=== PATIENT | male | born 1940 | race Caucasian/White ===

== ENCOUNTER 2019-08-02 12:34 | Observation (INO) | payer MEDICARE, BC, OTHER ==
[~2019-08-02] VITALS: Ht 193 cm; Wt 101.4 kg
[~2019-08-02 12:34] MED LIST: MEDDOSEPAK PO; VENTOLIN HFA IN; ZPAK PO
--- NOTE | 2019-08-02 12:46 | NUR ---
AMBULATED TO ROOM 8 WITH STEADY GAIT.
--- NOTE | 2019-08-02 13:27 | NUR ---
PT PRESENTS WITH PALPITATIONS AND SOME CHEST DISCOMFORT THAT THE PT SAYS IS A PAIN OF 0/10. 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 A BLOOD GLUCOSE WAS DONE IMMIDATELY, AND IT SHOWED A CRITICAL HIGH. NO ACTUAL NUMBER DETERMIND AND PT IS NOT A DX DIABETIC. WILL CONTINUE TO MONITOR.
--- NOTE | 2019-08-02 13:32 | NUR ---
ACCU CHECK COMPLETED. RESULT WAS CR HIGH
[2019-08-02 13:43] LABS: HEMATOCRIT 44.3 % (39.0-50.0); HEMOGLOBIN 15.5 g/dl (14.0-18.0); IMMATURE GRANULOCYTES 0.3 % (0.0-5.0); MEAN CORPUSCULAR HGB 31.1 pG CALC (26.0-32.0); NEUT# 7.23 thou/uL (1.82-7.42); RED BLOOD COUNT 4.98 mill/uL (4.70-6.10); RED CELL DISTRI WIDTH 13.5 % (11.5-15.5)
[2019-08-02 13:59] LABS: ALBUMIN 4.1 g/dL (3.2-5.0); ALKALINE PHOSPHATASE 130 u/l (38-126); ANION GAP 18 (6-22 (CALC)); BUN 19 mg/dL (8-23); BUN/CREATININE RATIO 15 (12-20 (CALC)); CARBON DIOXIDE 23 mmol/l (22-30); CHLORIDE 97 mmol/l (95-108); CREATININE 1.3 mg/dL (0.7-1.3); GFR 53 ML/MIN (>=60 (CALC)); GFR FOR AFR.AMER. > 60 ML/MIN (>=60 (CALC)); POTASSIUM 4.5 mmol/l (3.5-5.1); SGOT/AST 31 u/l (19-48); SODIUM 133 mmol/l (137-146); TOTAL PROTEIN 6.9 g/dL (6.3-8.2)
[2019-08-02 14:11] LABS: MYOGLOBIN 132 ng/mL (0 - 121)
--- NOTE | 2019-08-02 14:55 | NUR ---
PREFORMED ANOTHER ACCU CHECK RESULT [id number]
[2019-08-02 14:58] LABS: URINE BILIRUBIN - DIPSTICK NEGATIVE (NEGATIVE); URINE BLOOD DIPSTICK TRACE-INTACT (NEGATIVE); URINE COLOR YELLOW; URINE GLUCOSE - DIPSTICK >=1000 mg/dL (NEGATIVE); URINE KETONE NEGATIVE (NEGATIVE); URINE LEUK ESTERASE NEGATIVE (NEGATIVE); URINE NITRITE - DIPSTICK NEGATIVE (Negative); URINE PROTEIN - DIPSTICK NEGATIVE (NEG-TRACE); URINE UROBILINOGEN - DIPSTICK 0.2 E.U./dL (0.2)
[2019-08-02] MEDS ORDERED: LIPITOR10 M1 PO (15:18)
[2019-08-02] MEDS ORDERED: HYZAAR1 TAB PO (15:19)
[2019-08-02] MEDS ORDERED: DIGOXIN125 MCG (15:20)
[2019-08-02] MEDS ORDERED: ATENOLOL25 MG PO (15:21)
[2019-08-02] MEDS ORDERED: PREVACID15 M2 PO (15:22)
--- NOTE | 2019-08-02 15:55 | NUR ---
PT REQUESTED CUP OF WATER, REQUEST COMPLIED. PT DENIES ANY OTHER NEEDS
--- NOTE | 2019-08-02 16:30 | NUR ---
PT UPDATED ON PLAN OF CARE, CALL LIGHT WITHIN REACH, WILL CONTINUE TO MONITOR.
--- NOTE | 2019-08-02 17:39 | NUR ---
PT MADE AWARE OF WAIT TIME, BUSY ER AND MED SURG FLOOR. PT VERBALIZED UNDERSTANDING. WILL CONTINUE TO MONITOR.
--- NOTE | 2019-08-02 18:28 | NUR ---
ACCU CHECK RESULT [id number]
--- NOTE | 2019-08-02 18:28 | NUR ---
REPORT TO PAWAN
--- NOTE | 2019-08-02 18:32 | NUR ---
TRANSPORTED BY STRETCHER BY GELA. CARE ASSUMED TO PAWAN
[2019-08-02 18:35] VITALS: BP 115/84
--- NOTE | 2019-08-02 18:36 | NUR ---
PT ARRIVED FROM ER VIA STRETCHER ACCOMPANIED BY STAFF. IV SITE IS FREE FROM REDNESS OR EDEMA. TELE MONITOR IN PLACE. CONTINUE TO OSBERVE AND MONITOR.
--- NOTE | 2019-08-02 21:15 | NUR ---
PT ADMISSION COMPLETED AND PT ASSESSED. PT LOC TO SELF, AND LOCATION/CIRCUMSTANCE. HE DOES HAVE SOME DIFFICULTY FINDING WORDS TO COMPLETE HIS THOUGHT, BUT FOR THE MOST PART IS ABLE TO COMMUNICATE W/ME. PT REPORTS BEING TOLD HE WAS DIABETIC 1.5 YRS AGO BY A DOCTOR IN [place], BUT THAT HE DOES NOT TAKE ANY MEDICATIONS OR INSULIN FOR BS. HE DOES REPORT THAT HE CHECKS HIS BLOOD SUGAR 2X PER DAY AM AND PM.
[2019-08-02 23:55] VITALS: BP 119/81
--- NOTE | 2019-08-03 00:46 | NUR ---
PT SLEEPING AT THIS TIME. PT MOANING/SNORING IN HIS SLEEP, OTHERWISE NO S/O DISTRESS NOTED. CALL LIGHT IS AT BEDSIDE. PT AWOKE TO MY ENTERING ROOM. DENIES ANY NEEDS, BUT ENCOURAGED TO CALL NEEDS ARISE. BED ALARM ON.
--- NOTE | 2019-08-03 03:23 | NUR ---
IVF PUMP SOUNDED, IVF REPLACED AT THIS TIME. URINAL EMPTIED OF 200CC CLEAR DARK YELLOW URINE AT THIS TIME. BED ALARM ON. CALL LIGHT IN HAND, PT DENIES ANY OTHER NEEDS.
[2019-08-03 04:30] VITALS: BP 113/81
[2019-08-03 05:47] LABS: HEMOGLOBIN 14.9 g/dl (14.0-18.0); IMMATURE GRANULOCYTES 0.4 % (0.0-5.0); MEAN CELL VOLUME 90.7 fL CALC (80.0-100.0); MEAN CORPUSCULAR HGB 31.4 pG CALC (26.0-32.0); MEAN CORPUSCULAR HGB CONC 34.7 g/L CALC (32.0-36.0); NEUT# 5.8 thou/uL (1.82-7.42); RED BLOOD COUNT 4.74 mill/uL (4.70-6.10); RED CELL DISTRI WIDTH 13.7 % (11.5-15.5)
--- NOTE | 2019-08-03 05:57 | NUR ---
PT SLEEPING W/LIGHTS AND TV ON. NO S/O DISTRESS NOTED. BED ALARM ON AND CALL LIGHT W/IN REACH.
[2019-08-03 06:06] LABS: ANION GAP 13 (6-22 (CALC)); BUN 15 mg/dL (8-23); BUN/CREATININE RATIO 13 (12-20 (CALC)); CARBON DIOXIDE 24 mmol/l (22-30); CHLORIDE 103 mmol/l (95-108); CREATININE 1.2 mg/dL (0.7-1.3); GFR 58 ML/MIN (>=60 (CALC)); GFR FOR AFR.AMER. > 60 ML/MIN (>=60 (CALC)); SODIUM 136 mmol/l (137-146)
--- NOTE | 2019-08-03 08:00 | NUR ---
PATIENT COMFORTABLE IN BED, VISITING AND VERY SUPPORTIVE. ASSESSMENT COMPLETED, NO PAIN OR DISTRESS. CALL LIGHT IN REACH, BED IN LOWEST POSITION, ALL NEEDS MET.
[2019-08-03 08:15] VITALS: BP 111/57
--- NOTE | 2019-08-03 12:00 | NUR ---
PATIENT READING HIS BOOK. NO PAIN OR DISTRESS. SPOUSE LEFT TO HOME, BUT WILL RETURN LATER.
[2019-08-03 15:00] VITALS: BP 98/75
--- NOTE | 2019-08-03 15:01 | NUR ---
IN TO VISIT WITH PT AND HEPLOCKED IV FLUIDS
--- NOTE | 2019-08-03 17:52 | NUR ---
PATIENT'S ASSISTED PATIENT TO THE CHAIR. PATIENT CHAIR WHEELS LOCKED, CALL YARBROUGH WITHIN REACH, PATIENT IN NO DISTRESS, DISCUSSED DIBETES TEACHING AND NUTRITION ALONG WITH CHOICES.
[2019-08-03 19:33] VITALS: BP 93/71
--- NOTE | 2019-08-03 21:11 | NUR ---
pt medicated as orders provide and assessment completed at this time. pt denies any other needs, is left sitting upright in bed watching football on tv. no s/o distress noted. pt reports feeling "better than yesterday."
[2019-08-03 23:45] VITALS: BP 101/75
--- NOTE | 2019-08-03 23:50 | NUR ---
PT SET BED ALARM OFF. UPON ENTERING ROOM, PT WAS ATTEMPTING TO GET OUT OF BED TO LEAVE ROOM STATING "WHERE'S MY ." ATTEMPTS WERE MADE TO REORIENT PT TO LOCATION/CIRCUMSTANCE AND THAT HIS IS AT HOME, PT STATED, "NO SHE'S NOT." HE INSISTED ON AMBULATING HALLWAY TO NURSES STATION. PT APPEARED CONFUSED AND WAS UNABLE TO REORIENT. PT ASKED TO CALL HIS . PT WAS LED BACK TO HIS ROOM AND PROVIDED HIS PHONE AND ASSISTED W/'S PHONE NUMBER SHE LEFT IT ON HIS BST.
--- NOTE | 2019-08-04 01:30 | NUR ---
PT SITTING ON SIDE OF THE BED, NO S/O DISTRESS NOTED. PT CONFUSED TO CIRCUMSTANCES.
--- NOTE | 2019-08-04 02:15 | NUR ---
PT CONFUSED TO CIRCUMSTANCES AND WANTING TO "LOOK FOR HIS ROOM." PT IS SITTING ON THE SIDE OF HIS BED IN HIS ROOM. PT ASSISTED TO NEW ROOM AND AGREED TO TRY AND SLEEP "AN HOUR OR TWO." NO S/O DISTRESS, JUST CONFUSION TO CIRCUMSTANCES. ATTEMPTS WERE MADE TO REORIENT, PT IS CALMLY IN BED IN NEW ROOM 271/REGISTRATION NOTIFIED OF ROOM CHANGE AND CALL LIGHT IN HAND, LIGHTS TURNED DOWN LOW, BED ALARM ON.
--- NOTE | 2019-08-04 02:53 | NUR ---
PT IS SLEEPING AT THIS TIME. NO S/O DISTRESS NOTED. BED ALARM ON.
[2019-08-04 04:36] VITALS: BP 98/61
--- NOTE | 2019-08-04 05:16 | NUR ---
ATTEMPTING TO GET UP, ASKING WHERE HIS IS. EASILY REORIENTED, CALMED. PT READING MAGAZINES W/CALL LIGHT IN HAND AND BED ALARM ON.
[2019-08-04 05:38] LABS: HEMATOCRIT 38.9 % (39.0-50.0); HEMOGLOBIN 13.3 g/dl (14.0-18.0); MEAN CELL VOLUME 90.3 fL CALC (80.0-100.0); MEAN CORPUSCULAR HGB 30.9 pG CALC (26.0-32.0); MEAN CORPUSCULAR HGB CONC 34.2 g/L CALC (32.0-36.0); RED BLOOD COUNT 4.31 mill/uL (4.70-6.10); RED CELL DISTRI WIDTH 13.7 % (11.5-15.5)
[2019-08-04 05:52] LABS: ANION GAP 12 (6-22 (CALC)); BUN 17 mg/dL (8-23); BUN/CREATININE RATIO 15 (12-20 (CALC)); CARBON DIOXIDE 24 mmol/l (22-30); CHLORIDE 103 mmol/l (95-108); CREATININE 1.2 mg/dL (0.7-1.3); GFR 58 ML/MIN (>=60 (CALC)); GFR FOR AFR.AMER. > 60 ML/MIN (>=60 (CALC)); POTASSIUM 3.7 mmol/l (3.5-5.1); SODIUM 135 mmol/l (137-146)
--- NOTE | 2019-08-04 08:00 | NUR ---
PATIENT ASSESSMENT COMPLETED. IN THE ROOM, NO DISTRESS, CALL YARBROUGH WITHIN REACH, NO PAIN, NEEDS MET.
--- NOTE | 2019-08-04 08:40 | NUR ---
FAMILY IN THE ROOM. ASSISTED PT FOR A SHOWER AND LINEN CHANGE
[2019-08-04 10:00] VITALS: BP 99/66
[2019-08-04 11:05] VITALS: BP 115/79
--- NOTE | 2019-08-04 11:56 | NUR ---
PATIENT TEACHING WITH PATIENT AND SPOUSE FOR DIABETES IN OLDER ADULTS. NUTRITION, PORTIONS, ETC., ALONG WITH NFOOT CARE WAS DISCUSSED AND FEEDBACK/QUESTIONS WERE ANSWERED.
[2019-08-04 15:31] VITALS: BP 88/59
--- NOTE | 2019-08-04 16:54 | NUR ---
PATIENT WILL BE DISCHARGED AFTER INSULIN COVERAGE AND DINNER. PATIENT DRESSED, IN THE CHAIR READY TO GO. SPOUSE IS ASSISTING WITH COLLECTION OF PERSONAL BELONGINGS. BOTH PATIENT AND SPOUSE ARE ACTIVE IN TEACHING AND INFORMATION ON ADULT DIABETE (NEW DIAGNOSIS).
[2019-08-04] MEDS ORDERED: LEVEMIR FL100 UNIT/M SC (17:41)
[2019-08-04] MEDS ORDERED: NOVOLOG FL100 UNIT/M SC (17:45)
--- NOTE | 2019-08-04 18:33 | NUR ---
IV SITE DISCONTINEUD CATHETER INTACT NO REDNESS OR EDEMA. DISCHARGE INSTRUCTIONS GIVEN AND VERBALIZED UNDERSTANDING.FAMILY RECEIVED MORE LITERATURE RE: DIABETES. AND INSTRUCTED TO CALL FOR THE AUDIT MANAGER. CONTIUE TO OSBERVE AND MONITOR.
--- NOTE | 2019-08-07 17:19 | NUR ---
SPOKE WITH SIGNIFICANT OTHER RE: PHONE THERMAL MOLDER, AND SCRAP SAWYER. INQUIRING ABOUT THE EXTENSION FOR THE SCRAP SAWYER. WILL LEAVE WITH THE THERMAL MOLDER.
== END 2019-08-04 18:33 | disposition home or self-care (01) ==
LOC: ED 12:34 → ED-I 15:27 → ED 15:55 → MS2 15:56
PROVIDERS: Emergency Medicine; Nurse Practitioner Family; ADMIT Internal Medicine; ATTEND Internal Medicine
DX: E11.65 Type 2 diabetes mellitus with hyperglycemia (principal); I10 Essential (primary) hypertension; I48.91 Unspecified atrial fibrillation; D72.829 Elevated white blood cell count, unspecified; Z95.0 Presence of cardiac pacemaker
CPT/HCPCS: G0378